=== PATIENT | female | born 1980 | race African-American/Black ===

== ENCOUNTER 2022-04-06 02:41 | Outpatient (REF) | payer OTHER, SELFPAY ==
[2022-04-06 03:03] LABS: COVID-19 Test Positive (Negative); IDNOW Serial# 16C4AD1C
== END 2022-04-06 02:42 | disposition home or self-care (01) ==
LOC: HO.LAB 02:41
PROVIDERS: Visit Provider Internal Medicine
DX: Z20.822 Contact with and (suspected) exposure to COVID-19 (principal)
CPT/HCPCS: 87635

== ENCOUNTER 2024-06-23 06:13 | Emergency (ER) | payer OTHER, SELFPAY ==
--- NOTE | ~2024-06-23 | XR_ITS ---
CLINICAL HISTORY: Cough 1 view chest x-ray Comparison: None Findings: No consolidation or effusion. Heart size is normal. No acute fracture. IMPRESSION: 1. No acute findings. This document has been electronically signed by: Castillo Wagner MD on 06/23/2024 07:06:06
[2024-06-23 06:17] VITALS: BP 153/100; PULSE 106; RESP 24; TEMP 36.9; O2SAT 100; BMI 31.0
[2024-06-23 06:36] VITALS: BP 131/37; PULSE 99; RESP 24; TEMP 36.9; O2SAT 100
--- OUTSIDE RECORDS SUMMARY | 2024-06-23 06:53 | XMS_ITS | Clinical Summary ---
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 BENIGN RECOMMENDATION(S): 1: Routine screening mammogram BILATERAL in 1 year. Consider bilateral screening breast ultrasound -------- FINAL REPORT -------- Dictated By: Frandy Hudson Dictated Date: 04/15/2024 11:14 ET Assigned Physician: Frandy Hudson Reviewed and Electronically Signed By: Frandy Hudson Signed Date: 04/15/2024 11:48 ET Workstation ID: [id number] Transcribed By: Self Edit Transcribed Date: 04/15/2024 11:21 ET Audrey Addison CNM IMG US PROCEDURES Final Resul t * Hepatitis C antibody (04/09/2024 9:56 AM EST) Hepatitis C Antibody Negative Negative LAB CHEMISTRY METHOD 04/09/2024 11:38 AM EST [facility] Blood Venous blood specimen / Unknown Venipuncture / Unknown 04/09/2024 9:56 AM EST 04/09/2024 10:19 AM EST Audrey Addison CNM LAB BLOOD ORDERABLES Final Re sult [facility] [address] [place] [address], [place] [phone] * HIV 1,2 antibody, p24 antigen with reflex to differentiation (04/09/2024 9:56 AM EST) HIV Combo AB/AG Negative Negative LAB CHEMISTRY METHOD 04/09/2024 11:38 AM EST [facility] Blood Venous blood specimen / Unknown Venipuncture / Unknown 04/09/2024 9:56 AM EST 04/09/2024 10:19 AM EST Narrative [facility] - 04/09/2024 11:38 AM EST This assay is a 4th generation assay allowing for earlier detection of HIV infection by detecting the presence of the HIV-1 p24 antigen as well as the traditional antibodies to HIV type 1 (including group O) and type 2. ??Use of a 4th generation assay is the current CDC recommendation for HIV screening. Audrey Addison [facility] BLOOD ORDERABLES Final Re sult Performing Organization Address City/[facility]/ZIP Co de Phone Number [facility] [address] [place] [address], [place] [phone] * Treponema pallidum antibody with reflex to RPR and particle agglutination (04/09/2024 9:56 AM EST) T. Pallidum Antibodies Negative Negative LAB CHEMISTRY METHOD 04/09/2024 11:11 AM EST [facility] Blood Venous blood specimen / Unknown Venipuncture / Unknown 04/09/2024 9:56 AM EST 04/09/2024 10:19 AM EST [facility] BLOOD ORDERABLES Final Re sult Performing Organization Address City/[facility]/ZIP Co de Phone Number [facility] [address] [place] [address], [place] [phone] * Trichomonas vaginalis antigen (04/09/2024 9:31 AM EST) Trichomonas vaginalis Negative Negative 04/09/2024 5:28 PM EST [facility] Swab Vaginal structure / Unknown Non-blood Collection / Unknown 04/09/2024 9:31 AM EST 04/09/2024 3:59 PM [facility] MICROBIOLOGY - GENERAL OR DERABLES Final Result Performing Organization Address City/[facility]/ZIP Co de Phone Number [facility] [address] [place] [address], * Chlamydia trachomatis and Neisseria gonorrhoeae molecular study (04/09/2024 9:31 AM EST) Neisseria gonorrhoeae PCR Negative Negative LAB MOLECULAR DIAGNOSTICS METHOD 04/10/2024 8:57 AM EST [facility] Chlamydia trachomatis PCR Negative Negative LAB MOLECULAR DIAGNOSTICS METHOD 04/10/2024 8:57 AM EST [facility] Swab Cervix uteri structure / Unknown Non-blood Collection / Unknown 04/09/2024 9:31 AM EST 04/09/2024 3:59 PM EST Audrey Addison [facility] MICROBIOLOGY - GENERAL OR DERABLES Final Result Performing Organization Address [facility]/ZIP Co de Phone Number [facility] [address] [place] [address], [place] [phone] * Wet prep, genital (04/09/2024 9:31 AM EST) Pathologist [facility] Clue Cells, Wet Prep Negative Negative 04/09/2024 5:10 PM EST [facility] Yeast, Wet Prep Negative Negative 04/09/2024 5:10 PM EST [facility] Trichomonas, Wet Prep Indeterminate Negative 04/09/2024 5:10 PM EST [facility] Comment:Refer to Trichomonas antigen. Swab Vaginal structure / Unknown Non-blood Collection / Unknown 04/09/2024 9:31 AM EST 04/09/2024 3:59 PM EST us Audrey [facility] MICROBIOLOGY - GENERAL OR DERABLES Final Result Performing Organization Address City/[facility]/ZIP Co de Phone Number [facility] [address] [place] [address], * Depression Screening (06/18/2023) Depression Screening abstracted Historical Provider HEALTH MAINTENANCE Final Result * Cervical Cancer Screening: HPV (01/30/2023) Cervical Cancer Screening: HPV negative, abstracted Historical Provider HEALTH MAINTENANCE Final Result * (ABNORMAL) Lipid panel (12/19/2022) LDL/HDL Ratio 5(A) 0 - 4 Triglycerides 80 0 - 150 mg/dL Cholesterol 197 0 - 200 mg/dL HDL 43 >=40 mg/dL LDL Cholesterol 138(A) 0 - 100 mg/dL Blood Venous blood specimen / Unknown Historical Provider LAB BLOOD ORDERABLES Delaney l Result from Last 3 Months or Most Recently Relevant to Health Maintenance Insurance [facility] 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
[2024-06-23 06:59] LABS: IDNOW Serial# 58CA691E; Influenza A Negative (Negative); Influenza B2 Negative (Negative)
--- NOTE | 2024-06-23 07:08 | ED_ITS ---
HPI - URI/Sore Throat General Chief Complaint: Dyspnea Stated Complaint: cough Time Seen by Provider: 06/23/24 06:56 Source: patient Mode of arrival: ambulatory Limitations: no limitations History of Present Illness ED Provider: HARLEEN MACK Narrative: 44 yo female healthy not a smoker who comes in with c/o dry cough some clear sputum for 2 weeks after a URI with fevers. She has some dyspnea. She cannot shake her cough. 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 No CP. She has had this one other time in the past. No n/v/d. MD elicited complaint: cough Onset (ago): week(s) (2) Consistency: progressively worsening Severity: moderate Description of mucous: clear Able to tolerate fluids by mouth: Yes Exacerbating factors: nothing Relieving factors: nothing Context: sick contacts Associated symptoms: cough and shortness of breath Treatments prior to arrival: none Related Data Previous Rx's ?Medication ?Instructions ?Recorded azithromycin 250 mg tablet See Rx Instructions PO .COMPLEX #6 06/23/24 tabs prednisone 20 mg tablet 40 mg (2 x 20 mg) PO DAILY 5 days 06/23/24 #10 tabs Allergies Allergy/AdvReac Type Severity Reaction Status Date / Time No Known Allergies Allergy Verified 06/23/24 06:18 Review of Systems Review of Systems: Constitutional : No Fever, No Chills ENT/Mouth : No Hoarseness, No sore throat, No Rhinorrhea Eyes: No Redness, No Discharge, No Vision Changes Cardiovascular : No Chest Pain, positive SOB, no edema Respiratory : positive Cough, No Sputum, no Wheezing, Gastrointestinal : No Nausea, No Vomiting, No Diarrhea, No abdominal Pain Genitourinary : No Dysuria, No Hematuria Musculoskeletal : No joint pain, No Myalgias Skin : No rash Neuro : No Weakness, No Numbness, No Headache All other systems reviewed and are negative PMFSH Past Medical History Attestation statement: The following information was validated with the patient. Source: old records reviewed Medical History No pertinent past medical history Social History Social History Smoked in Last 30 Days: No Use of substances other than those prescribed or required for medical reasons: No Advance Directives: No Advance Directives Information Provided: Yes Do you have a plan to hurt others: No Plan Patient : No Physical Exam Vital Signs: Vital Signs: Last Vital Signs Temp 98.5 F 06/23/24 07:32 Pulse 99 06/23/24 07:32 Resp 24 H 06/23/24 07:32 BP 131/37 L 06/23/24 07:32 Pulse Ox 100 06/23/24 07:32 O2 Del Method Room Air 06/23/24 07:32 BMI result Body Mass Index 31.0 Appearance: Alert. Oriented X3. No acute distress. Eyes: Pupils equal, round and reactive to light. ENT: Pharynx normal. Neck: Normal inspection. Neck supple. CVS: Normal heart rate and rhythm. Pulses normal. Respiratory: No respiratory distress. Breath sounds slightly diminished. Rhonchi anteriorly Abdomen: Soft and nontender. Skin: Skin warm and dry. Normal skin color. Normal skin turgor. Extremities: No lower extremity edema. No calf ttp Neuro: Oriented X 3. No motor deficit. No sensory deficit. CN2-12 intact Medications Administered Discontinued Medications Generic Name Dose Route Start Last Admin Trade Name Ortizq PRN Reason Stop Dose Admin Albuterol Sulfate 2 puff 06/23/24 07:08 06/23/24 07:30 Albuterol Sulfate 90 Mcg 8 Gm Inhaler INHALE 06/23/24 07:09 2 puff ONCE ONE Administration Medical Decision Making Medical Decision Making [facility] Narrative: 44 yo female healthy not a smoker here with c/o dry cough, dyspnea and no improvement in 2 weeks. She has no fevers, leg swelling, chest pain - at this time suspect either URI, pneumonia, bronchitis. She is slightly diminished will dose with INH and if work up reassuring start on prednisone and azithromycin. Differential Diagnosis Differential Diagnoses: The differential diagnosis associated with the presentation includes bronchitis, URI, pneumonia Admission/Observation Consideration of admission/observation: Escalation of care including admission/observation considered no resp distress stable for DC Lab Data [facility] Lab Attestation statement: I reviewed the patient's lab results. Labs: Lab Results 06/23/24 06/23/24 Range/Units 06:39 07:22 COVID-19 (YASMIN) Negative (Negative) COVID-19 Clin Com See Note Influenza Type A (GALO) Negative (Negative) Influenza Type B (GALO) Negative (Negative) Influenza A & B Note See Note Independent Interpretation I performed an independent interpretation of an: Plain X-Ray (normal ) Radiology Impression Discussion of test interpretation with radiology: I have reviewed the radiologist's reading. External Record Review External record reviewed: Outpatient record Prescription Management I considered prescription management with: Antibiotic and Other Discharge Plan Discharge Clinical Impression: Bronchitis Patient Disposition: Home, Self-Care Instructions: Acute Bronchitis (ED) Additional Instructions: negative for covid, flu. chest xray normal at this time will treat a bronchitis return for fevers, worsening breathing, swelling, chest pain or any other concerns use 2 puffs of inhaler every 4 hours for wheezing/trouble breathing On azithromycin, call your provider if you develop new ringing in your ears, new problems hearing, dizziness, palpitations, abdominal pain, nausea, or diarrhea. Prescriptions: New azithromycin 250 mg tablet See Rx Instructions .ROUTE .COMPLEX Qty: 6 0RF Rx Instructions: For 250 mg dose pack: take 500 mg today (day 1), then 250 mg for 4 days (days 2-5) prednisone 20 mg tablet 40 mg PO DAILY 5 Days Qty: 10 0RF Stand Alone Forms: Work/School Release Interventions: ED Discharge Assessment Last Done: 06/23/24 07:32 Print Language: Cambodian
[2024-06-23] MEDS: Albuterol Sulfate 90 MCG 8 GM INHALER 2 PUFF INHALE (07:30)
[2024-06-23 07:32] VITALS: BP 131/37; PULSE 99; RESP 24; TEMP 36.9; O2SAT 100
[2024-06-23 07:51] LABS: COVID-19 Test Negative (Negative); IDNOW Serial# 58CA691E
== END 2024-06-23 08:01 | disposition home or self-care (01) ==
PROVIDERS: Emergency Provider Emergency Medicine
DX: J40 Bronchitis, not specified as acute or chronic (principal); R05.9 Cough, unspecified; R06.00 Dyspnea, unspecified
CPT/HCPCS: 71045; 87502; 87635; 99284

== ENCOUNTER → 2024-06-23 06:25 | Outpatient (BNV) | payer OTHER, SELFPAY | PROVIDERS: Emergency Provider Emergency Medicine; Visit Provider Radiology Diagnostic Radiology | DX: R05.9 Cough, unspecified (principal) | CPT/HCPCS: 71045 ==